=== PATIENT | male | born 1960 | race Caucasian/White ===

== ENCOUNTER 2020-10-05 11:23 | Emergency (ER) | payer OTHER ==
[~2020-10-05] VITALS: Ht 175.3 cm; Wt 63.5 kg
--- NOTE | 2020-10-05 11:39 | NUR ---
called Angela sample supervisor to request pt medical history, faxed the request to [phone] and [phone]
--- NOTE | 2020-10-05 12:07 | NUR ---
pt refuses blood draw, ekg and heplock. pt says he does "not want any rthing to be done, wants to walk out."
--- NOTE | 2020-10-05 12:09 | NUR ---
Patient does not wish to proceed with medical care recommended by Dr. Snehal zimmerman). Patient given information related to possible complications, up to and including , which could occur as a result of leaving the hospital at this time. Patient verbalizes understanding of risks involved due to leaving against medical advice. Patient has signed AMA form.pt walks in steady gait.
--- NOTE | 2020-10-05 12:10 | NUR ---
Patient given written and verbal discharge instructions. Patient verbalizes understanding of instructions. Patient is ambulatory with steady gait. Refuses offer of [facility] placement. Patient given list of available shelters in surrounding area.
== END 2020-10-05 12:09 | disposition home or self-care (01) ==
LOC: ER 11:23
DX: Z48.02 Encounter for removal of sutures (principal); Z59.0 Homelessness; R10.9 Unspecified abdominal pain
CPT/HCPCS: 93005; A4663